=== PATIENT | female | born 1975 | race Caucasian/White ===

== ENCOUNTER 2017-01-04 21:58 | Emergency (ER) | payer OTHER ==
--- NOTE | 2017-01-04 23:47 | DIAGNOSTIC IMAGING REPORT ---
PROCEDURE: ABDOMEN/PELVIS WITH CONTRAST CLINICAL INDICATION: ABDOMINAL PAIN, PERIUMBILICAL TECHNIQUE: 125 ml of Isovue 300 were injected intravenously and axial images were obtained of the abdomen and pelvis with sagittal and coronal reformations. COMPARISON: None. FINDINGS: ABDOMEN: Minor right hydronephrosis and moderate urothelial enhancement of the intrarenal collecting system and urothelial enhancement throughout the minimally dilated right ureter. Tiny cortical cysts seen laterally in the right kidney. There are to ill-defined areas in the left renal cortex of relative parenchymal hypodensity, the larger measuring 1.9 cm in the anterior upper pole and the other measuring 1.8 cm in the lateral upper pole. No ureteral calcifications. No significant perinephric inflammation or fluid. Clear lung bases. Normal sized heart. No hiatal hernia. The liver, gallbladder, adrenal glands, pancreas and spleen are normal. The abdominal aorta is normal in its course and caliber. Occasional minor calcific atherosclerosis. There are no suspicious calcifications, retroperitoneal adenopathy or masses. The stomach, upper bowel loops, and mesentery are normal. Intact anterior abdominal wall. Moderate amount of solid stool throughout the colon. PELVIS: No urinary bladder calcification. Mild diffuse mucosal enhancement of the urinary bladder. No significant wall thickening. No bladder mass. The appendix and pelvic small bowel loops are normal. The uterus, ovaries, and pelvic vessels are normal. No adenopathy, free fluid, or pelvic mass. L4-5 hardware fusion. IMPRESSION: 1. Findings suggesting of ascending urinary tract infection involving the right ureter into the right kidney without areas of focal or diffuse pyelonephritis. 2. Focal areas of relative parenchymal hypodensity in the left kidney suggestive of pyelonephritis. 3. Minor right hydronephrosis without obstructing calcification. 4. Mild mucosal enhancement of the urinary bladder without significant wall thickening. No bladder mass. 5. Discussed with Dr. Thompson in the emergency room. All CT scans at this facility use dose modulation, iterative reconstruction, and/or weight-based dosing when appropriate to reduce radiation dose to as low as reasonably achievable.
--- NOTE | 2017-01-05 00:01 | ED ORDER SUMMARY ---
..... Patient: LEANA CASTRO OrderSheet [facility] VisitID: [id number] [place] [address] 41y, F Registration Date/Time: 01/04/2017 ORDER SHEET Weight: 79.3 kg (stated) Allergies: morphine GENERAL ORDERS: CBC w Diff Urgent (22:43 01/04/2017 JQuivey R.N. per protocol) (23:05 ASchmuck) CMP Urgent (22:43 01/04/2017 JQuivey R.N. per protocol) (23:05 ASchmuck) NPO (22:43 01/04/2017 JQuivey R.N. per protocol) (22:53 ASchmuck) CT Abd/Pel w Cont (No) (N/A) Urgent (22:53 01/04/2017 Natalia Pinedo) (Ack 23:05 Lakhwinder [facility] Documentation Improvement Specialist) [facility] U[facility]-Culture if indicated Urgent (22:54 01/04/2017 Natalia Pinedo) (23:05 ASchmuck) Serum Quantitative Urgent (22:54 01/04/2017 Natalia Pinedo) (23:05 ASchmuck) Lipase Urgent (22:54 01/04/2017 Natalia Pinedo) (23:05 ASchmuck) Pulse oximeter (22:54 01/04/2017 Natalia Pinedo) (23:05 ASchmuck) MEDICATION ORDERS: IV FLUIDS: Zofran IV 4 mg (NOW) (22:43 01/04/2017 JQuivey R.N. per protocol) (22:44 JQuivey R.N.) IV Saline Lock (22:43 01/04/2017 JQuivey R.N. per protocol) (22:44 JQuivey R.N.) IV NS : initial bolus 1000 mL (1000 mL/hr), then none - for X1 (NOW) (22:53 01/04/2017 Natalia Pinedo) (23:05 ASchmuck) Dilaudid IV 1 mg (HIGH ALERT MEDICATION, NOW) (22:55 01/04/2017 Natalia Pinedo) (23:05 ASchmuck) okay per history Ceftriaxone IV 1 gm/50mL (NOW) (23:33 01/04/2017 Natalia Pinedo) (23:48 ASchmuck) Toradol IV 30 mg (NOW) (23:39 01/04/2017 Natalia Pinedo) (23:47 ASchmuck) Dilaudid IV 1 mg (HIGH ALERT MEDICATION, NOW) (00:14 01/05/2017 Natalia Pinedo) (Ack 0:16 ASchmuck) (0:23 ASchmuck) ORDER SHEET NOTES: [Electronically signed by Carolynn Arroyo (:01/05/2017)] [Electronically signed by Woody Thompson Dr. (05:21 01/06/2017)] [Electronically locked/signed by Carolynn Arroyo (:01/05/2017)]
--- NOTE | 2017-01-05 00:01 | ED ORDER SUMMARY ---
..... Patient: LEANA CASTRO OrderSheet [facility] VisitID: [id number] [place] [address] 41y, F Registration Date/Time: 01/04/2017 ORDER SHEET Weight: 79.3 kg (stated) Allergies: morphine GENERAL ORDERS: CBC w Diff Urgent (22:43 01/04/2017 JQuivey R.N. per protocol) (23:05 ASchmuck) CMP Urgent (22:43 01/04/2017 JQuivey R.N. per protocol) (23:05 ASchmuck) NPO (22:43 01/04/2017 JQuivey R.N. per protocol) (22:53 ASchmuck) CT Abd/Pel w Cont (No) (N/A) Urgent (22:53 01/04/2017 Natalia Pinedo) (Ack 23:05 Lakhwinder [facility] Livestock Farmer) [facility] UA-Culture if indicated Urgent (22:54 01/04/2017 Natalia Pinedo) (23:05 ASchmuck) Serum Quantitative Urgent (22:54 01/04/2017 Natalia Pinedo) (23:05 ASchmuck) Lipase Urgent (22:54 01/04/2017 Natalia Pinedo) (23:05 ASchmuck) Pulse oximeter (22:54 01/04/2017 Natalia Pinedo) (23:05 ASchmuck) MEDICATION ORDERS: IV FLUIDS: Zofran IV 4 mg (NOW) (22:43 01/04/2017 JQuivey R.N. per protocol) (22:44 JQuivey R.N.) IV Saline Lock (22:43 01/04/2017 JQuivey R.N. per protocol) (22:44 JQuivey R.N.) IV NS : initial bolus 1000 mL (1000 mL/hr), then none - for X1 (NOW) (22:53 01/04/2017 Natalia Pinedo) (23:05 ASchmuck) Dilaudid IV 1 mg (HIGH ALERT MEDICATION, NOW) (22:55 01/04/2017 Natalia Pinedo) (23:05 ASchmuck) okay per history Ceftriaxone IV 1 gm/50mL (NOW) (23:33 01/04/2017 Natalia Pinedo) (23:48 ASchmuck) Toradol IV 30 mg (NOW) (23:39 01/04/2017 Natalia Pinedo) (23:47 ASchmuck) Dilaudid IV 1 mg (HIGH ALERT MEDICATION, NOW) (00:14 01/05/2017 Natalia Pinedo) (Ack 0:16 ASchmuck) (0:23 ASchmuck) ORDER SHEET NOTES: [Electronically signed by Carolynn Arroyo (:01/05/2017)] [Electronically signed by Woody Thompson Dr. (05:21 01/06/2017)] [Electronically locked/signed by Carolynn Arroyo (:01/05/2017)]
--- NOTE | 2017-01-05 00:01 | ED NURSING NOTES ---
Clinical Report - Nurses [facility] [address] [place] [address] 01/04/2017 22:00 Patient: LEANA CASTRO TRIAGE Triage time 22:32 Jan 04 2017. Acuity: LEVEL 3. Chief Complaint: ABDOMINAL PAIN and NAUSEA. 22:37 01/04/17. Alert. SEPSIS SCREEN: Sepsis Screen: heart rate greater than 90. JANAY COMA SCORE: Janay Coma Scale: 15- eyes open spontaneously (4); best verbal response- oriented x 4 (5); best motor response- obeys commands (6). --22:37 Carolynn Arroyo 22:37 01/04/17. BP: 121/86. HR: 104. RR: 18. O2 saturation: 98%. Temp: 99.9 F. Pain level now 10/10. --22:37 Carolynn Arroyo 22:39 01/04/17. --22:39 Carolynn Arroyo. Weight: 79.3 kg stated. Height/Length: 67 inches Per Patient. BMI: 27.4. --22:36 Carolynn Arroyo. Medications FLUoxetine HCl Oral 30 mg. --22:33 Carolynn Arroyo Hydrocodone-Acetaminophen Oral. --22:33 Carolynn Arroyo. Medication/allergy information source: the patient. --22:37 Carolynn Arroyo. Allergies morphine. (liquid morphine bae) --22:33 Carolynn Arroyo. History Arrived by private vehicle. Historian: patient. Accompanied by family. No primary care physician. Onset. (3 days ago). Describes the quality as pressure. Relates location as in the periumbilical area and in the pelvic area and suprapubic area. Notes pain level as 10/10 on arrival and at maximum. ( Pt reports abd pain that started about 3 days ago. "It feels like my uterus is falling out of my vagina" when she pees. Pain has moved up. Also has flank pain. Pain started out of nowhere.). The patient has had a subjective fever, fever and abdominal pain. Last oral intake by patient was (yesterday morning). 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 PAST MEDICAL HX: Immunizations: up-to-date. SOCIAL HX: Light tobacco smoker (cigarette)- less than 1/2 a pack per day. Occasional alcohol use. No drug use. No recent travel. No known contact with a sick individual. FALL RISK ASSESSMENT: Fall risk assessment completed. No fall risk identified. NUTRITIONAL RISK ASSESSMENT: The nutritional risk assessment revealed no deficiencies. FUNCTIONAL ASSESSMENT: Functional assessment: no impairments noted. LEARNING NEEDS ASSESSMENT: The learning needs assessment revealed no barriers. SKIN INTEGRITY ASSESSMENT: Skin integrity risk assessment completed. No skin integrity risk identified. --22:37 Carolynn Arroyo PAST MEDICAL HX: Last normal menstrual period was 2 weeks ago. Denies current . --22:39 Carolynn Arroyo. PROBLEMS: Epilepsy. Seizure. --22:34 Carolynn Arroyo. ADDITIONAL SURGERIES: Back Surgery. --22:34 Carolynn Arroyo. Assessment The patient states feels the same. --22:37 Carolynn Arroyo. Interventions ID band on patient. --22:37 Carolynn Arroyo. PHYSICAL ASSESSMENT 22:38 01/04/17. Ambulatory to room. Patient gowned. GENERAL / NEURO / PSYCH: Alert. Oriented X 4. Appears in pain. HEENT: Mucous membranes are pink. RESPIRATORY: Respirations not labored. CVS: Capillary refill less than 2 seconds. GI / : The patient has had nausea. Abdomen soft. Abdominal tenderness in the periumbilical area and suprapubic area. Stool color normal. SKIN: Skin is warm and dry. --22:38 Carolynn Arroyo. NURSING PROGRESS NOTES 22:35 01/04/2017 Site #1 started via IV in the right hand with an 20g angiocath, with aseptic technique and good blood return; one attempt. Blood drawn: rainbow set. Labeled in the presence of the patient and sent to the lab. Saline lock flushed with 10 mL saline. --22:44 Gio Medellin RBienvenidoNBienvenido 22:38 01/04/17. The plan of care for this patient has been created. Pulse oximeter and NIBP monitor placed on patient; monitor alarms on. Patient gowned. Head of bed elevated. Reassurance given. Two patient identifiers checked. Call light placed in reach. Side rails up x 1. Bed placed in lowest position. Brakes of bed on. Patient ready for evaluation- chart flagged and ED physician and PA notified. --22:38 Carolynn Arroyo 22:41 01/04/2017 Zofran (Ondansetron HCl) IVP 4 mg given over 2 minute(s) via site #1. Allergies verified and confirmed 5 rights. IV patency established. IV site checked: no pain, redness, or swelling. IV flushed thoroughly pre- and post-medication administration. --22:44 Gio Medellin R.N. 22:49 BSC placed at bedside. --22:49 Gio Medellin, RElias 23:00 01/04/2017 Started bag #1 1000 mL IV Fluids IV NS (Saline); at 1000 mL/hr over 1 hour(s) via site #1 via IV pump. Allergies verified and confirmed 5 rights. IV patency established. IV site checked: no pain, redness, or swelling. IV flushed thoroughly pre- and post-medication administration. --23:05 Carolynn Arroyo 23:03 01/04/2017 Dilaudid (HYDROmorphone HCl PF) IVP 1 mg given over 30 second(s) via site #1. Allergies verified, confirmed 5 rights and sedative warning given to the patient. IV patency established. IV site checked: no pain, redness, or swelling. IV flushed thoroughly pre- and post-medication administration. IVP given by RN. --23:05 Carolynn Arroyo 23:44 01/04/2017 Toradol IVP 30 mg given over 1 minute(s) via site #1. Allergies verified and confirmed 5 rights. IV patency established. IV site checked: no pain, redness, or swelling. IV flushed thoroughly pre- and post-medication administration. IVP given by RN. --23:47 Carolynn Arroyo 23:48 01/04/2017 Started 1 gm of Ceftriaxone IVPB in bag #1 50 mL; at 150 mL/hr over 20 minute(s) via site #1 via IV pump. Allergies verified and confirmed 5 rights. IV patency established. IV site checked: no pain, redness, or swelling. IV flushed thoroughly pre- and post-medication administration. --23:48 Carolynn Arroyo 00:03 01/05/2017 IV Fluids IV NS Discontinued: bag #1. Total amount infused: 1000 mL. IV patency established. IV site checked: no pain, redness, or swelling. IV flushed thoroughly. --00:42 Carolynn Arroyo 00:08 01/05/2017 Ceftriaxone IVPB Discontinued. Total amount infused: 50 mL. IV patency established. IV site checked: no pain, redness, or swelling. IV flushed thoroughly. --00:24 Carolynn Arroyo 00:20 01/05/2017 Dilaudid (HYDROmorphone HCl PF) IVP 1 mg given over 30 second(s) via site #1. Allergies verified, confirmed 5 rights and sedative warning given to the patient. IV patency established. IV site checked: no pain, redness, or swelling. IV flushed thoroughly pre- and post-medication administration. IVP given by RN. --00:23 Carolynn Arroyo 00:42 01/05/2017 Site #1 removed upon discharge. Catheter intact. Pressure dressing applied. --00:42 Carolynn Arroyo 00:42 01/05/2017 IV Saline Lock Drip IV Discontinued. Total amount infused: 0 mL. --00:42 Carolynn Arroyo. DISPOSITION / DISCHARGE 00:01/05/17. Departure time: 00:Jan 05 2017. Condition at departure: improved. The goals identified in the patient's plan of care were met. No learning barriers present. Discharge instructions provided and reviewed with the patient. Reviewed warnings (Patient and family verbalized understanding of sedation warning.). Reviewed medication(s) side effects, precautions, dosing and course information. Prescription(s) given to the patient (Zofran, cephalexin, percocet, pyridium.). Treatments reviewed. Reviewed referral to a primary care physician for followup. Patient verbalized understanding. Written instructions provided in Serbian. The patient was discharged by the physician. She was discharged home and accompanied by family. She left the Emergency Department ambulatory and via private vehicle. Family member driving. FALL RISK ASSESSMENT: Fall risk assessment completed. No fall risk identified. --00:41 Carolynn Arroyo 00:40 01/05/17. BP: 107/51. HR: 109. RR: 16. O2 saturation: 97% on room air. Temp: 98.7 F. Pain level now: 09/07. --00:41 Carolynn Arroyo. Locked/Released at 01/05/2017 1:24 by Carolynn Arroyo,
--- NOTE | 2017-01-05 00:01 | ED CLINICAL REPORT ---
Clinical Report - Physicians/Mid Levels [facility] [address] [place] [address] 01/04/2017 22:00 Patient: LEANA CASTRO Time Seen: 2243; initial patient contact. Arrived- By private vehicle. Historian- patient. HISTORY OF PRESENT ILLNESS Chief Complaint: ABDOMINAL PAIN. This started past 3 days and is still present and worsening. It was gradual in onset and has been constant and waxing/waning but is not gone now. At its maximum, severity described as severe. When seen in the E.D., severity described as severe. Modifying factors- worsened by movement. Relieved by rest. It is described as sharp. No radiation. It is described as located in the periumbilical area. The patient has had nausea. No loss of appetite, vomiting or diarrhea. No additional abdominal pain. (no recent abx, travel, sick contacts, or new/unusual foods.). No recent travel. Similar symptoms previously: None. Recent medical care: Not recently seen/assessed. REVIEW OF SYSTEMS No fever. All systems otherwise negative, except as recorded above. PAST HISTORY See nurses notes. Medications: Hydrocodone-Acetaminophen Oral. FLUoxetine HCl Oral 30 mg. Allergies: morphine. (liquid morphine bae). SOCIAL HISTORY Smoker- current status unknown. No alcohol use or drug use. No recent travel. Is a local resident. ADDITIONAL NOTES The nursing notes have been reviewed. PHYSICAL EXAM Vital Signs: 01/04/2017 22:37 BP: 121/86. HR: 104. RR: 18. O2 saturation: 98%. Temp: 99.9 F. Oxygen saturation normal. Appearance: Alert. Oriented X3. Patient in mild distress. (non-toxic appearance). Neck: Normal inspection. Neck supple. No meningeal signs. CVS: Normal heart rate and rhythm. Heart sounds normal. Pulses normal. Respiratory: No respiratory distress. Breath sounds normal. Chest nontender. No rales, rhonchi or wheezes. Abdomen: Soft. Mild tenderness in the periumbilical area. No guarding, rebound tenderness or Koehler's sign present. Bowel sounds normal. (negative). Skin: Skin warm and dry. Normal skin color. No rash. Normal skin turgor. Extremities: Extremities exhibit normal ROM. No lower extremity edema. LABS, X-RAYS, AND EKG Abdominal CT: PROCEDURE: ABDOMEN/PELVIS WITH CONTRAST CLINICAL INDICATION: ABDOMINAL PAIN, PERIUMBILICAL TECHNIQUE: 125 ml of Isovue 300 were injected intravenously and axial images were obtained of the abdomen and pelvis with sagittal and coronal reformations. COMPARISON: None. FINDINGS: ABDOMEN: Minor right hydronephrosis and moderate urothelial enhancement of the intrarenal collecting system and urothelial enhancement throughout the minimally dilated right ureter. Tiny cortical cysts seen laterally in the right kidney. There are to ill-defined areas in the left renal cortex of relative parenchymal hypodensity, the larger measuring 1.9 cm in the anterior upper pole and the other measuring 1.8 cm in the lateral upper pole. No ureteral calcifications. No significant perinephric inflammation or fluid. Clear lung bases. Normal sized heart. No hiatal hernia. The liver, gallbladder, adrenal glands, pancreas and spleen are normal. The abdominal aorta is normal in its course and caliber. Occasional minor calcific atherosclerosis. There are no suspicious calcifications, retroperitoneal adenopathy or masses. The stomach, upper bowel loops, and mesentery are normal. Intact anterior abdominal wall. Moderate amount of solid stool throughout the colon. PELVIS: No urinary bladder calcification. Mild diffuse mucosal enhancement of the urinary bladder. No significant wall thickening. No bladder mass. The appendix and pelvic small bowel loops are normal. The uterus, ovaries, and pelvic vessels are normal. No adenopathy, free fluid, or pelvic mass. L4-5 hardware fusion. IMPRESSION: 1. Findings suggesting of ascending urinary tract infection involving the right ureter into the right kidney without areas of focal or diffuse pyelonephritis. 2. Focal areas of relative parenchymal hypodensity in the left kidney suggestive of pyelonephritis. 3. Minor right hydronephrosis without obstructing calcification. 4. Mild mucosal enhancement of the urinary bladder without significant wall thickening. No bladder mass. The study was independently viewed by me and interpreted by the radiologist. The study was discussed with the radiologist (via phone and pacs). Laboratory Tests: UA-Culture if indicated: (FRANKLIN: 01/04/2017 23:02) ( MsgRcvd 01/04/2017 23:14) Final results Test Result Flag Units (Reference) URINE COLOR YELLOW URINE APPEARANCE HAZY URINE GLUCOSE NEGATIVE (NEGATIVE) URINE BILIRUBIN NEGATIVE (NEGATIVE) URINE KETONE NEGATIVE (NEGATIVE) URINE SPECIFIC GRAVITY 1.015 (1.010-1.030) URINE PH 7.0 (5.0-8.0) URINE PROTEIN 1+ (NEGATIVE) URINE UROBILINOGEN 1.0 EU/dL (0.2-1.0) URINE NITRITE POSITIVE (NEGATIVE) URINE BLOOD 3+ (NEGATIVE) URINE LEUK ESTERASE POSITIVE (NEGATIVE) URINE RBC 10-25 rbc/hpf (0-1) URINE WBC 25-50 wbc/hpf (0-1) URINE EPITHELIAL CELLS 3-5 EPI/hpf (0-5) URINE BACTERIA MANY (4+) (NONE SEEN) URINE COMMENT CULTURE INDICATED YEAST SEEN ON MICROSCOPIC EVALUATIONURINE CULTURES ARE SET-UP BASED ON THE FOLLOWING CRITERIA:POSITIVE NITRITEPOSITIVE LEUKOCYTE ESTERASEGREATER THAN 10 WHITE BLOOD CELLSMODERATE (2+) OR GREATER BACTERIA CBC w Diff: (FRANKLIN: 01/04/2017 22:35) ( [facility] 01/04/2017 22:57) Final results Test Result Flag Units (Reference) WHITE BLOOD COUNT 9.2 K/uL (4.5-11.5) RED BLOOD COUNT 4.50 M/uL (4.00-5.20) HEMOGLOBIN 13.7 gm/dL (12.0-16.0) HEMATOCRIT 41.1 % (36.0-46.0) MEAN CELL VOLUME 92 fL (80-100) MEAN CORPUSCULAR HGB 31 pg (26-34) MEAN CORPUSCULAR HGB CONC 33 g/dL (31-37) RED CELL DISTRIBUTION WIDTH 13.0 % (11.6-14.8) PLATELET COUNT 223 K/uL (150-400) LYMPH % 19.6 L % (25-40) MONO % 9.3 % (3-14) GRANULOCYTE % 71.1 (53-90) Lipase: (FRANKLIN: 01/04/2017 22:35) ( [facility] 01/04/2017 23:17) Final results Test Result Flag Units (Reference) LIPASE 64 L U/L (73-393) BETA HCG, QUANTITATIVE 1 mIU/mL REFERENCE RANGE:Adult Males: <2 mIU/mLNon- Females: <6 mIU/mL Females:Approximate Approximate hCGGestational Age Range (mIU/mL) 0-1 week 0-501-2 weeks 40-3002-3 weeks 100-38733-4 weeks 500-76510-6 months 5,000-200,0002-3 months 10,000-100,0002nd trimester 3,000-50,0003rd trimester 1,000-50,000 CMP: (FRANKLIN: 01/04/2017 22:35) ( MsgRcvd 01/04/2017 22:59) Final results Test Result Flag Units (Reference) GLUCOSE 97 mg/dL (70-110) BUN 7 mg/dL (7-18) CREATININE 0.7 mg/dL (0.6-1.3) Estimated GFR >60 mL/min Estimated GFR- >60 mL/min Note: Persistent reduction over 3 months in eGFR<60 mL/min/1.73 m2 defines CKD. Patients with eGFR values>=60 mL/min/1.73 m2 may also have CKD if evidence ofpersistent proteinuria. Additional information may be foundat www.kidney.org. SODIUM 140 mmol/L (136-145) POTASSIUM 4.2 mmol/L (3.5-5.1) CHLORIDE 102 mmol/L (98-107) CARBON DIOXIDE 28 mmol/L (21-32) CALCIUM 9.0 mg/dL (8.5-10.1) TOTAL PROTEIN 8.0 g/dL (6.4-8.2) ALBUMIN 3.6 g/dL (3.3-5.0) BILIRUBIN, TOTAL 0.5 mg/dL (0.0-1.0) ALKALINE PHOSPHATASE 84 U/L (46-116) AST (SGOT) 32 U/L (15-37) ALT (SGPT) 25 U/L (12-78) Culture, Urine: (FRANKLIN: 01/04/2017 23:02) ( MsgRcvd 01/05/2017 14:41) IP Test Result Flag Units (Reference) CULTURE, URINE DATE: 01/05/17 PRELIM REPORT: PRELIMINARY REPORT #1 -- GNR QUANTITATIVE URINE GROWTH: GREATER THAN 100,000 CFU/mL ID AND SENS TO FOLLOW: IDENTIFICATION AND SENSITIVITY TO FOLLOW . PROGRESS AND PROCEDURES Course of Care: The patient is a 41-year-old female With past medical history who is in her usual state of health prior to the onset of her illness. At this time differential diagnosis includes urinary tract infection, bowel obstruction, acute appendicitis, or ectopic . Patient will be evaluated with a urine test as well as urinalysis, laboratory studies, and CT scan of the abdomen and pelvis with contrast. Patient is agreeable to the treatment plan. Pain medication as been offered. The patient's workup was remarkable for the findings above. No acute findings suggestive of a surgical abdomen. Urinalysis and CT scan are concerning for significant urinary tract infection. Antibiotics were provided here in the emergency department. Patient was evaluated for improvement of symptoms following treatment in the emergency department. Patient was updated on the workup of her studies here in the emergency department. Patient had significant improvement with her symptoms while here in the emergency department. Because of the patient's significant improvement and findings here in the emergency department, feel the patient is stable outpatient candidate. Patient was monitored in the emergency department for any worsening of her symptoms and with the significant clinical improvement, feel the patient is a stable outpatient candidate. Do not fill patient is admitted to the hospital require further emergency department workup/evaluation. Pain has been significantly controlled here in the emergency department as well. I discussion with the patient in regards to her workup here in emergency department including diagnosis, home care, follow-up, and return precautions. All questions have been answered. The patient expressed understanding of these instructions and was agreeable to them. Prior to patient's departure from the emergency department she was noted to be resting in bed and in no acute distress. Repeat examination of her abdomen continues to be benign. Do not feel patient has a surgical abdomen. Do not feel patient needs to be admitted to the hospital or require further emergency department workup/evaluation. Disposition: Discharged. Condition: good. CLINICAL IMPRESSION Acute periumbilical abdominal pain. Moderate nausea (acute). Microscopic hematuria Acute pyelonephritis (early, left sided). INSTRUCTIONS Warnings: GENERAL WARNINGS: Return or contact your physician immediately if your condition worsens or changes unexpectedly, if not improving as expected, or if other problems arise. SPECIFICALLY, return if you develop pain, fever, vomiting, the inability to keep fluids down, blood in vomitus, blood in diarrhea, fainting or lightheadedness. Your Current Medications: CONTINUE TAKING THE FOLLOWING MEDICATIONS: FLUoxetine HCl Oral : 30 mg. Hydrocodone-Acetaminophen Oral. Prescription Medications: Zofran (orally disintegrating tablets) 4 mg: take 1 orally every 8 hours as needed for nausea and vomiting. Dispense ten (10). No refill. Substitution is permissible. Cephalexin 500 mg: take 1 capsule orally every 8 hours for 10 days. No refill. (disp 30 caps) Percocet 5 mg/325 mg: take 1 tablet orally every 6 hours as needed for pain. Dispense twelve (12). No refill. Substitution is permissible. Pyridium 200 mg: take 1 orally every 8 hours for 2 days. No refill. Substitution is permissible. (disp 6 each) Follow-up: Return to the emergency department as needed. Follow up with your doctor in three days. Reason for referral: recheck today's concerns. Summary of care provided to patient via paper. Screening today revealed the patient's blood pressure to be in the normal range. The patient should follow up with a primary care provider for blood pressure management. Understanding of the discharge instructions verbalized by patient. (Electronically signed by Woody Thompson Dr. 01/06/2017 5:21)
--- NOTE | 2017-01-06 05:21 | ED MED RECONCILIATION SUMMARY ---
Patient: LEANA CASTRO Medication Reconciliation Report [facility] VisitID: [id number] [place] [address] 41y, F Registration Date/Time: 01/04/2017 Weight: 79.3 kg Height/Length: 67 in. BMI: 27.4 ALLERGIES: morphine The patient's Home Medications are listed below: CONTINUE TAKING THE FOLLOWING MEDICATIONS: FLUoxetine HCl Oral 30 mg Hydrocodone-Acetaminophen Oral The source(s) of the original Home Medication information: patient The following Medications were given to the patient in the Emergency Department: Zofran [IVP] IVP 4 mg, administered: 01/04/2017 10:41:00 PM IV NS IV Fluids bolus 0, then 1000 mL/hr, administered: 01/04/2017 11:00:00 PM Dilaudid [IVP] IVP 1 mg, administered: 01/04/2017 11:03:00 PM Toradol [IVP] IVP 30 mg, administered: 01/04/2017 11:44:00 PM Ceftriaxone [IVPB] IVPB bolus 0, then 1 gm 150 mL/hr, administered: 01/04/2017 11:48:00 PM Dilaudid [IVP] IVP 1 mg, administered: 01/05/2017 12:20:00 AM The following Medications were prescribed to the patient: Zofran (orally disintegrating tablets) 4 mg: take 1 orally every 8 hours as needed for nausea and vomiting. Dispense ten (10). No refill. Substitution is permissible. -- Woody Thompson Dr. Cephalexin 500 mg: take 1 capsule orally every 8 hours for 10 days. No refill.(disp 30 caps) -- Woody Thompson Dr. Percocet 5 mg/325 mg: take 1 tablet orally every 6 hours as needed for pain. Dispense twelve (12). No refill. Substitution is permissible. -- Woody Thompson Dr. Pyridium 200 mg: take 1 orally every 8 hours for 2 days. No refill. Substitution is permissible.(disp 6 each) -- Woody Thompson Dr.
--- NOTE | 2017-01-06 05:21 | ED DISCHARGE INSTRUCTIONS ---
Patient: LEANA CASTRO General Instructions [facility] VisitID: [id number] [place] [address] 41y, F Registration Date/Time: 01/04/2017 Acute periumbilical abdominal pain. Moderate nausea (acute). Microscopic hematuria Acute pyelonephritis (early, left sided). INSTRUCTIONS Warnings: GENERAL WARNINGS: Return or contact your physician immediately if your condition worsens or changes unexpectedly, if not improving as expected, or if other problems arise. SPECIFICALLY, return if you develop pain, fever, vomiting, the inability to keep fluids down, blood in vomitus, blood in diarrhea, fainting or lightheadedness. Your Current Medications: CONTINUE TAKING THE FOLLOWING MEDICATIONS: FLUoxetine HCl Oral : 30 mg. Hydrocodone-Acetaminophen Oral. Prescription Medications: Zofran (orally disintegrating tablets) 4 mg: take 1 orally every 8 hours as needed for nausea and vomiting. Dispense ten (10). No refill. Substitution is permissible. Cephalexin 500 mg: take 1 capsule orally every 8 hours for 10 days. No refill. (disp 30 caps) Percocet 5 mg/325 mg: take 1 tablet orally every 6 hours as needed for pain. Dispense twelve (12). No refill. Substitution is permissible. Pyridium 200 mg: take 1 orally every 8 hours for 2 days. No refill. Substitution is permissible. (disp 6 each) Follow-up: Return to the emergency department as needed. Follow up with your doctor in three days. Reason for referral: recheck today's concerns. Summary of care provided to patient via paper. Screening today revealed the patient's blood pressure to be in the normal range. The patient should follow up with a primary care provider for blood pressure management. Understanding of the discharge instructions verbalized by patient. ADDITIONAL INFORMATION Abdominal Pain, Unknown Cause (Female) The exact cause of your abdominal (stomach) pain is not certain. This does not mean that this is something to worry about, or the right tests were not done. Everyone likes to know the exact cause of the problem, but sometimes with abdominal pain, there is no clear-cut cause, and this could be a good thing. The good news is that your symptoms can be treated, and you will feel better. Your condition does not seem serious now; however, sometimes the signs of a serious problem may take more time to appear. For this reason,it is important for you to watch for any new symptoms, problems,or worsening of your condition. Over the next few days, the abdominal pain may come and go, or be continuous. Other common symptoms can include nausea and vomiting. Sometimes it can be difficult to tell if you feel nauseous, you may just feel bad and not associate that feeling with nausea. Constipation, diarrhea, and a fever may go along with the pain. The pain may continue even if treated correctly over the following days. Depending on how things go, sometimes the cause can become clear and may require further or different treatment. Additional evaluations, medications, or tests may be needed. Home care Your health care provider may prescribe medications for pain, symptoms, or an infection. Follow the health care provider's instructions for taking these medications. General care Rest until your next exam. No strenuous activities. Try to find positions that ease discomfort. A small pillow placed on the abdomen may help relieve pain. Something warm on your abdomen (such as a heating pad) may help, but be careful not to burn yourself. Diet Do not force yourself to eat, especially if having cramps, vomiting, or diarrhea. Water is important so you do not get dehydrated. Soup may also be good. Sports drinks may also help, especially if they are not too acidic. Make sure you don't drink sugary drinks as this can make things worse. Take liquids in small amounts. Do not guzzle them. Caffeine sometimes makes the pain and cramping worse. Avoid dairy products if you have vomiting or diarrhea. Don't eat large amounts at a time. Wait a few minutes between bites. Eat a diet low in fiber (called a low-residue diet). Foods allowed include refined breads, white rice, fruit and vegetable juices without pulp, tender meats. These foods will pass more easily through the intestine. Avoid whole-grain foods, whole fruits and vegetables, meats, seeds and nuts, fried or fatty foods, dairy, alcohol and spicy foods until your symptoms go away. Follow-up care Follow up with your health care provider as instructed, or if your pain does not begin to improve in the next 24 hours. When to seek medical care Seek prompt medical care if any of the following occur: Pain gets worse or moves to the right lower abdomen New or worsening vomiting or diarrhea Swelling of the abdomen Unable to pass stool for more than three days Fever of 100.4F (38C) or higher, or as directed by your healthcare provider. Blood in vomit or bowel movements (dark red or black color) Jaundice (yellow color of eyes and skin) Weakness, dizziness Chest, arm, back, neck or jaw pain Unexpected vaginal bleeding or missed period Call 911 Call emergency services if any of the following occur: Trouble breathing Confusion Fainting or loss of consciousness Rapid heart rate Seizure Abdominal Pain,Possible Appendicitis [Repeat Exam, Female] Based on your visit today, the exact cause of your abdominal (stomach) pain is not certain. However, you do have some of the early signs of APPENDICITIS. Early in an appendix infection the symptoms can be similar to a simple "stomach ache" or "stomach flu". Therefore, the diagnosis can be hard to make. Since an appendix infection is a serious condition, it is important to know if this is the cause of your symptoms. WAITING for more time to pass and repeating the exam is the best way to find out whether you have appendicitis. Within the next 12-24 hours the cause of your stomach pain should become clear. It is important for you to watch for any new symptoms or worsening of your condition. (See below). Home Care: Rest until your next exam. No strenuous activities. Eat a diet low in fiber (called a low-residue diet). Foods allowed include refined breads, white rice, fruit and vegetable juices without pulp, tender meats. These foods will pass more easily through the intestine. Avoid whole-grain foods, whole fruits and vegetables, meats, seeds and nuts, fried or fatty foods, dairy, alcohol and spicy foods until your symptoms go away. In some cases, you may be asked not to eat or drink anything until you are re-examined. Return for another exam exactly as directed. Follow Up with your doctor or this facility as directed. Get Prompt Medical Attention if any of the following occur: Pain gets worse or moves to the right lower abdomen New or worsening vomiting or diarrhea Swelling of the abdomen Unable to pass stool for more than three days Fever of 100.4F (38C) or higher, or as directed by your healthcare provider Blood in vomit or bowel movements (dark red or black color) Weakness, dizziness or fainting Unexpected vaginal bleeding Kidney Infection [Adult, Female] An infection of the kidney is also called "pyelonephritis". It usually starts as a bladder infection ("cystitis") which spreads to the kidneys. Pyelonephritis is more serious than a bladder infection. It can cause severe illness if not treated properly. The usual symptoms include an aching pain in the back, side or lower abdomen. Other symptoms may include fever, chills, nausea, vomiting, an urge to urinate and a burning sensation when passing urine. Home Care: Stay home from work or school. Rest in bed until your fever breaks and you are feeling better. Drink lots of fluid (at least 6-8 glasses a day, unless you must restrict fluids for other medical reasons). This will force the medicine into your urinary system and flush the bacteria out of your body. Avoid sexual intercourse until you have finished all of your medicine and your symptoms have gone away. Avoid caffeine, alcohol and spicy foods which may irritate the kidney and bladder. You may use acetaminophen (Tylenol) or ibuprofen (Motrin, Advil) to control pain, unless another pain medicine was prescribed. [NOTE: If you have chronic liver or kidney disease or ever had a stomach ulcer or GI bleeding, talk with your doctor before using these medicines.] Follow Up with your doctor or as advised by our staff for a repeat urine test in 10 days. This will ensure that your infection is fully cleared. [NOTE: If you had an X-ray or CT scan, it will be reviewed by a specialist. You will be notified of any new findings that may affect your care.] Get Prompt Medical Attention if any of the following occur: Fever over 100.4F (38.0C) after 48 hours of treatment No improvement by the third day of treatment Increasing back or abdominal pain Repeated vomiting or inability to take oral medicine Weakness, dizziness or fainting Blood In The Urine Blood in the urine ("hematuria") has many possible causes. If it occurs after an injury (such as a car accident or fall), it is most often a sign of bruising to the kidney or bladder. Common medical causes of blood in the urine include urinary tract infection, kidney stone, inflammation, tumors, or certain other diseases of the kidney or bladder. Menstruation can cause blood to appear in the urine sample, although it is not coming from the urinary tract. If only a trace amount of blood is present, it will show up on the urine test, even though the urine may be yellow and not pink or red. This may occur with any of the above conditions, as well as heavy exercise or high fever. In this case, your doctor may want to repeat the urine test on another day. This will show if the blood is still present. If so, then other tests can be done to find out the cause. Home Care: If your urine does not appear bloody (pink, brown or red) then you do not need to restrict your activity in any way. If you can see blood in your urine, rest and avoid heavy exertion until your next exam. Do not use aspirin or anti-inflammatory medicine like ibuprofen (Motrin, Advil) or naproxen (Naprosyn, Aleve). These thin the blood and may increase bleeding. Follow Up with your doctor or as advised by our staff. If you were injured and had blood in your urine, you should have a repeat urine test in 1-2 days. Contact your doctor or return to this facility for this test. [NOTE: A radiologist will review any X-rays that were taken. We will notify you of any new findings that may affect your care.] Get Prompt Medical Attention if any of the following occur: Bright red blood or blood clots in the urine (if a new symptom) Weakness, dizziness or fainting New groin, abdominal or back pain Fever of 100.4F (38C) or higher, or as directed by your healthcare provider Repeated vomiting Bleeding from nose, gums or easy bruising Ondansetron Oral disintegrating tablet What is this medicine? ONDANSETRON (on ROXANA se dorian) is used to treat nausea and vomiting caused by chemotherapy. It is also used to prevent or treat nausea and vomiting after surgery. How should I use this medicine? These tablets are made to dissolve in the mouth. Do not try to push the tablet through the foil backing. With dry hands, peel away the foil backing and gently remove the tablet. Place the tablet in the mouth and allow it to dissolve, then swallow. While you may take these tablets with water, it is not necessary to do so. Talk to your vendor relationship manager regarding the use of this medicine in children. Special care may be needed. What side effects may I notice from receiving this medicine? Side effects that you should report to your doctor or health rn palliative care as soon as possible: allergic reactions like skin rash, itching or hives, swelling of the face, lips, or tongue breathing problems dizziness fast or irregular heartbeat feeling faint or lightheaded, falls fever and chills swelling of the hands and feet tightness in the chest Side effects that usually do not require medical attention (report to your doctor or health rn palliative care if they continue or are bothersome): constipation or diarrhea headache What may interact with this medicine? Do not take this medicine with any of the following medications: -apomorphine -cisapride -dofetilide -dronedarone -pimozide -thioridazine -ziprasidone This medicine may also interact with the following medications: -carbamazepine -phenytoin -rifampicin -tramadol -other medicines that prolong the QT interval (cause an abnormal heart rhythm) What if I miss a dose? If you miss a dose, take it as soon as you can. If it is almost time for your next dose, take only that dose. Do not take double or extra doses. Where should I keep my medicine? Keep out of the reach of children. Store between 2 and 30 degrees C (36 and 86 degrees F). Throw away any unused medicine after the expiration date. What should I tell my health care provider before I take this medicine? They need to know if you have any of these conditions: heart disease history of irregular heartbeat liver disease low levels of magnesium or potassium in the blood an unusual or allergic reaction to ondansetron, granisetron, other medicines, foods, dyes, or preservatives or trying to get breast-feeding What should I watch for while using this medicine? Check with your doctor or health rn palliative care as soon as you can if you have any sign of an allergic reaction. Cephalexin Monohydrate Oral tablet What is this medicine? CEPHALEXIN (sef a DEENA in) is a cephalosporin antibiotic. It is used to treat certain kinds of bacterial infections It will not work for colds, flu, or other viral infections. How should I use this medicine? Take this medicine by mouth with a full glass of water. Follow the directions on the prescription label. This medicine can be taken with or without food. Take your medicine at regular intervals. Do not take your medicine more often than directed. Take all of your medicine as directed even if you think you are better. Do not skip doses or stop your medicine early. Talk to your vendor relationship manager regarding the use of this medicine in children. While this drug may be prescribed for selected conditions, precautions do apply. What side effects may I notice from receiving this medicine? Side effects that you should report to your doctor or health rn palliative care as soon as possible: allergic reactions like skin rash, itching or hives, swelling of the face, lips, or tongue breathing problems pain or trouble passing urine redness, blistering, peeling or loosening of the skin, including inside the mouth severe or watery diarrhea unusually weak or tired yellowing of the eyes, skin Side effects that usually do not require medical attention (report to your doctor or health rn palliative care if they continue or are bothersome): gas or heartburn genital or anal irritation headache joint or muscle pain nausea, vomiting What may interact with this medicine? probenecid some other antibiotics What if I miss a dose? If you miss a dose, take it as soon as you can. If it is almost time for your next dose, take only that dose. Do not take double or extra doses. There should be at least 4 to 6 hours between doses. Where should I keep my medicine? Keep out of the reach of children. Store at room temperature between 59 and 86 degrees F (15 and 30 degrees C). Throw away any unused medicine after the expiration date. What should I tell my health care provider before I take this medicine? They need to know if you have any of these conditions: kidney disease stomach or intestine problems, especially colitis an unusual or allergic reaction to cephalexin, other cephalosporins, penicillins, other antibiotics, medicines, foods, dyes or preservatives or trying to get breast-feeding What should I watch for while using this medicine? Tell your doctor or health rn palliative care if your symptoms do not begin to improve in a few days. Do not treat diarrhea with over the counter products. Contact your doctor if you have diarrhea that lasts more than 2 days or if it is severe and watery. If you have diabetes, you may get a false-positive result for sugar in your urine. Check with your doctor or health rn palliative care. Oxycodone Hydrochloride, Acetaminophen Oral tablet What is this medicine? ACETAMINOPHEN; OXYCODONE (a set a ISIDRA ugs fen; ox i KOE done) is a pain reliever. It is used to treat mild to moderate pain. How should I use this medicine? Take this medicine by mouth with a full glass of water. Follow the directions on the prescription label. Take your medicine at regular intervals. Do not take your medicine more often than directed. Talk to your vendor relationship manager regarding the use of this medicine in children. Special care may be needed. Patients over 65 years old may have a stronger reaction and need a smaller dose. What side effects may I notice from receiving this medicine? Side effects that you should report to your doctor or health rn palliative care as soon as possible: allergic reactions like skin rash, itching or hives, swelling of the face, lips, or tongue breathing difficulties, wheezing confusion light headedness or fainting spells severe stomach pain yellowing of the skin or the whites of the eyes Side effects that usually do not require medical attention (report to your doctor or health rn palliative care if they continue or are bothersome): dizziness drowsiness nausea vomiting What may interact with this medicine? alcohol antihistamines barbiturates like amobarbital, butalbital, butabarbital, methohexital, pentobarbital, phenobarbital, thiopental, and secobarbital benztropine drugs for bladder problems like solifenacin, trospium, oxybutynin, tolterodine, hyoscyamine, and methscopolamine drugs for breathing problems like ipratropium and tiotropium drugs for certain stomach or intestine problems like propantheline, homatropine methylbromide, glycopyrrolate, atropine, belladonna, and dicyclomine general anesthetics like etomidate, ketamine, nitrous oxide, propofol, desflurane, enflurane, halothane, isoflurane, and sevoflurane medicines for depression, anxiety, or psychotic disturbances medicines for sleep muscle relaxants naltrexone narcotic medicines (opiates) for pain phenothiazines like perphenazine, thioridazine, chlorpromazine, mesoridazine, fluphenazine, prochlorperazine, promazine, and trifluoperazine scopolamine tramadol trihexyphenidyl What if I miss a dose? If you miss a dose, take it as soon as you can. If it is almost time for your next dose, take only that dose. Do not take double or extra doses. Where should I keep my medicine? Keep out of the reach of children. This medicine can be abused. Keep your medicine in a safe place to protect it from theft. Do not share this medicine with anyone. Selling or giving away this medicine is dangerous and against the law. Store at room temperature between 20 and 25 degrees C (68 and 77 degrees F). Keep container tightly closed. Protect from light. This medicine may cause accidental overdose and if it is taken by other adults, children, or pets. Flush any unused medicine down the toilet to reduce the chance of harm. Do not use the medicine after the expiration date. What should I tell my health care provider before I take this medicine? They need to know if you have any of these conditions: brain tumor Crohn's disease, inflammatory bowel disease, or ulcerative colitis drink more than 3 alcohol containing drinks per day drug abuse or addiction head injury heart or circulation problems kidney disease or problems going to the bathroom liver disease lung disease, asthma, or breathing problems an unusual or allergic reaction to acetaminophen, oxycodone, other opioid analgesics, other medicines, foods, dyes, or preservatives or trying to get breast-feeding What should I watch for while using this medicine? Tell your doctor or health rn palliative care if your pain does not go away, if it gets worse, or if you have new or a different type of pain. You may develop tolerance to the medicine. Tolerance means that you will need a higher dose of the medication for pain relief. Tolerance is normal and is expected if you take this medicine for a long time. Do not suddenly stop taking your medicine because you may develop a severe reaction. Your body becomes used to the medicine. This does NOT mean you are addicted. Addiction is a behavior related to getting and using a drug for a non-medical reason. If you have pain, you have a medical reason to take pain medicine. Your doctor will tell you how much medicine to take. If your doctor wants you to stop the medicine, the dose will be slowly lowered over time to avoid any side effects. You may get drowsy or dizzy. Do not drive, use machinery, or do anything that needs mental alertness until you know how this medicine affects you. Do not stand or sit up quickly, especially if you are an older patient. This reduces the risk of dizzy or fainting spells. Alcohol may interfere with the effect of this medicine. Avoid alcoholic drinks. There are different types of narcotic medicines (opiates) for pain. If you take more than one type at the same time, you may have more side effects. Give your health care provider a list of all medicines you use. Your doctor will tell you how much medicine to take. Do not take more medicine than directed. Call emergency for help if you have problems breathing. The medicine will cause constipation. Try to have a bowel movement at least every 2 to 3 days. If you do not have a bowel movement for 3 days, call your doctor or health rn palliative care. Do not take Tylenol (acetaminophen) or medicines that have acetaminophen with this medicine. Too much acetaminophen can be very dangerous. Many nonprescription medicines contain acetaminophen. Always read the labels carefully to avoid taking more acetaminophen. Phenazopyridine Hydrochloride Oral tablet What is this medicine? PHENAZOPYRIDINE (fen az oh PEER eric pimentel) is a pain reliever. It is used to stop the pain, burning, or discomfort caused by infection or irritation of the urinary tract. This medicine is not an antibiotic. It will not cure a urinary tract infection. How should I use this medicine? Take this medicine by mouth with a glass of water. Follow the directions on the prescription label. Take after meals. Take your doses at regular intervals. Do not take your medicine more often than directed. Do not skip doses or stop your medicine early even if you feel better. Do not stop taking except on your doctor's advice. Talk to your vendor relationship manager regarding the use of this medicine in children. Special care may be needed. What side effects may I notice from receiving this medicine? Side effects that you should report to your doctor or health rn palliative care as soon as possible: allergic reactions like skin rash, itching or hives, swelling of the face, lips, or tongue blue or purple color of the skin difficulty breathing fever less urine unusual bleeding, bruising unusual tired, weak vomiting yellowing of the eyes or skin Side effects that usually do not require medical attention (report to your doctor or health rn palliative care if they continue or are bothersome): dark urine headache stomach upset What may interact with this medicine? Interactions are not expected. What if I miss a dose? If you miss a dose, take it as soon as you can. If it is almost time for your next dose, take only that dose. Do not take double or extra doses. Where should I keep my medicine? Keep out of the reach of children. Store at room temperature between 15 and 30 degrees C (59 and 86 degrees F). Protect from light and moisture. Throw away any unused medicine after the expiration date. What should I tell my health care provider before I take this medicine? They need to know if you have any of these conditions: [id number] dehydrogenase (G6PD) deficiency kidney disease an unusual or allergic reaction to phenazopyridine, other medicines, foods, dyes, or preservatives or trying to get breast-feeding What should I watch for while using this medicine? Tell your doctor or health rn palliative care if your symptoms do not improve or if they get worse. This medicine colors body fluids red. This effect is harmless and will go away after you are done taking the medicine. It will change urine to an dark orange or red color. The red color may stain clothing. Soft contact lenses may become permanently stained. It is best not to wear soft contact lenses while taking this medicine. If you are diabetic you may get a false positive result for sugar in your urine. Talk to your health care provider. You have been given the following additional information: Abdominal Pain, Unknown Cause, (Female) Abdominal Pain, Possible Appendicitis (Female) Pyelonephritis, Female (Adult) Hematuria Ondansetron Oral disintegrating tablet Cephalexin Monohydrate Oral tablet Oxycodone Hydrochloride, Acetaminophen Oral tablet Phenazopyridine Hydrochloride Oral tablet (Electronically signed by Woody Thompson Dr. 01/06/2017 5:21)
--- NOTE | 2017-01-06 05:21 | ED MED RECONCILIATION SUMMARY ---
Patient: LEANA CASTRO Medication Reconciliation Report [facility] VisitID: [id number] [place] [address] 41y, F Registration Date/Time: 01/04/2017 Weight: 79.3 kg Height/Length: 67 in. BMI: 27.4 ALLERGIES: morphine The patient's Home Medications are listed below: CONTINUE TAKING THE FOLLOWING MEDICATIONS: FLUoxetine HCl Oral 30 mg Hydrocodone-Acetaminophen Oral The source(s) of the original Home Medication information: patient The following Medications were given to the patient in the Emergency Department: Zofran [IVP] IVP 4 mg, administered: 01/04/2017 10:41:00 PM IV NS IV Fluids bolus 0, then 1000 mL/hr, administered: 01/04/2017 11:00:00 PM Dilaudid [IVP] IVP 1 mg, administered: 01/04/2017 11:03:00 PM Toradol [IVP] IVP 30 mg, administered: 01/04/2017 11:44:00 PM Ceftriaxone [IVPB] IVPB bolus 0, then 1 gm 150 mL/hr, administered: 01/04/2017 11:48:00 PM Dilaudid [IVP] IVP 1 mg, administered: 01/05/2017 12:20:00 AM The following Medications were prescribed to the patient: Zofran (orally disintegrating tablets) 4 mg: take 1 orally every 8 hours as needed for nausea and vomiting. Dispense ten (10). No refill. Substitution is permissible. -- Woody Thompson Dr. Cephalexin 500 mg: take 1 capsule orally every 8 hours for 10 days. No refill.(disp 30 caps) -- Woody Thompson Dr. Percocet 5 mg/325 mg: take 1 tablet orally every 6 hours as needed for pain. Dispense twelve (12). No refill. Substitution is permissible. -- Woody Thompson Dr. Pyridium 200 mg: take 1 orally every 8 hours for 2 days. No refill. Substitution is permissible.(disp 6 each) -- Woody Thompson Dr.
--- NOTE | 2017-01-06 05:21 | ED MAR SUMMARY ---
..... Medication Administration Record [facility] [address] [place] [address] Patient: LEANA CASTRO Visit ID: [id number] 41y, F Weight: 79.3 kg Height/Length: 67 in BMI: 27.4 ALLERGIES: morphine Given 22:41 01/04/2017 Gio Medellin R.N. Medication Administered: ZOFRAN [IVP] (ONDANSETRON HCL), Dose: 4 mg IVP over 2 minute(s), Site: #1 right hand. Medication Ordered: Zofran IV 4 mg (NOW). Start 23:00 01/04/2017 Carolynn Arroyo,, Stop 00:03 01/05/2017 Carolynn Arroyo, Medication Administered: IV NS (SALINE), Dose: IV Fluids over 1 hour(s), Rate: 1000 mL/hr, Dispensed: 1000 mL bag, Site: #1 right hand. Medication Ordered: IV NS : initial bolus 1000 mL (1000 mL/hr), then none - for X1 (NOW). Given 23:03 01/04/2017 Carolynn Arroyo, Medication Administered: DILAUDID [IVP] (HYDROMORPHONE HCL PF), Dose: 1 mg IVP over 30 second(s), Site: #1 right hand. Medication Ordered: Dilaudid IV 1 mg (HIGH ALERT MEDICATION, NOW). Given 23:44 01/04/2017 Carolynn Arroyo, Medication Administered: TORADOL [IVP], Dose: 30 mg IVP over 1 minute(s), Site: #1 right hand. Medication Ordered: Toradol IV 30 mg (NOW). Start 23:48 01/04/2017 Carolynn Arroyo,, Stop 00:08 01/05/2017 Carolynn Arroyo, Medication Administered: CEFTRIAXONE [IVPB], Dose: 1 gm IVPB over 20 minute(s), Rate: 150 mL/hr, Dispensed: 50 mL bag, Site: #1 right hand. Medication Ordered: Ceftriaxone IV 1 gm/50mL (NOW). Given 00:20 01/05/2017 Carolynn Arroyo, Medication Administered: DILAUDID [IVP] (HYDROMORPHONE HCL PF), Dose: 1 mg IVP over 30 second(s), Site: #1 right hand. Medication Ordered: Dilaudid IV 1 mg (HIGH ALERT MEDICATION, NOW).
--- NOTE | 2017-01-06 05:21 | ED MAR SUMMARY ---
..... Medication Administration Record [facility] [address] [place] [address] Patient: LEANA CASTRO Visit ID: [id number] 41y, F Weight: 79.3 kg Height/Length: 67 in BMI: 27.4 ALLERGIES: morphine Given 22:41 01/04/2017 Gio Medellin R.N. Medication Administered: ZOFRAN [IVP] (ONDANSETRON HCL), Dose: 4 mg IVP over 2 minute(s), Site: #1 right hand. Medication Ordered: Zofran IV 4 mg (NOW). Start 23:00 01/04/2017 Carolynn Arroyo,, Stop 00:03 01/05/2017 Carolynn Arroyo, Medication Administered: IV NS (SALINE), Dose: IV Fluids over 1 hour(s), Rate: 1000 mL/hr, Dispensed: 1000 mL bag, Site: #1 right hand. Medication Ordered: IV NS : initial bolus 1000 mL (1000 mL/hr), then none - for X1 (NOW). Given 23:03 01/04/2017 Carolynn Arroyo, Medication Administered: DILAUDID [IVP] (HYDROMORPHONE HCL PF), Dose: 1 mg IVP over 30 second(s), Site: #1 right hand. Medication Ordered: Dilaudid IV 1 mg (HIGH ALERT MEDICATION, NOW). Given 23:44 01/04/2017 Carolynn Arroyo, Medication Administered: TORADOL [IVP], Dose: 30 mg IVP over 1 minute(s), Site: #1 right hand. Medication Ordered: Toradol IV 30 mg (NOW). Start 23:48 01/04/2017 Carolynn Arroyo,, Stop 00:08 01/05/2017 Carolynn Arroyo, Medication Administered: CEFTRIAXONE [IVPB], Dose: 1 gm IVPB over 20 minute(s), Rate: 150 mL/hr, Dispensed: 50 mL bag, Site: #1 right hand. Medication Ordered: Ceftriaxone IV 1 gm/50mL (NOW). Given 00:20 01/05/2017 Carolynn Arroyo, Medication Administered: DILAUDID [IVP] (HYDROMORPHONE HCL PF), Dose: 1 mg IVP over 30 second(s), Site: #1 right hand. Medication Ordered: Dilaudid IV 1 mg (HIGH ALERT MEDICATION, NOW).
== END 2017-01-05 00:42 | disposition home or self-care (01) ==
LOC: ED SRH 21:58
DX: N10 Acute pyelonephritis (principal); R31.29 Other microscopic hematuria; R10.33 Periumbilical pain; R11.0 Nausea; G40.909 Epilepsy, unspecified, not intractable, without status epilepticus; Z79.891 Long term (current) use of opiate analgesic; Z79.899 Other long term (current) drug therapy; Z88.5 Allergy status to narcotic agent
CPT/HCPCS: 90004; 90100; 90148; 90197; 90469; 92235; 95059